=== PATIENT | male | born 1970 | race Caucasian/White ===

== ENCOUNTER 2024-04-07 08:54 | Outpatient (AMB) | payer MEDICAID, SELFPAY ==
--- NOTE | 2024-04-07 09:07 | MHC.OFFVIS ---
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 No hx of injury. Patient reports ongoing pain for about 6 months. He mentions that his pain is on the Patient states his pain is worse when he is using the stairs, walking and stand for too long. Patient finds relief with ibuprofen. 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 The patient was seen by SERGE Ventura, on 03/08/2024 for right knee pain. X-rays of the right knee were ordered. While in the office today, the patient reports experiencing right knee pain ongoing for the past 6 months. He mentions worsening pain with ambulation, prolonged standing, and with ambulating up and down the stairs. He has tried OTC ibuprofen with relief. [facility] Social History (Updated 04/07/24 @ 09:12 by Mallorie Wall) Alcohol intake: never Patient Tobacco Use Status: Current everyday Tobacco user Cigarette Packs Per Day: 0.50 Review of Systems Const All systems reviewed & are unremarkable except as noted in HPI and below Physical Exam Const General: cooperative, healthy appearing and no acute distress Resp Effort & Inspection: normal respiratory effort and able to speak in complete sentences Cardio Rate: regular rate Peripheral pulses: Peripheral pulses 2+ throughout GI Palpation (GI): Soft to palpation Skin Lesions: no lesions Rashes: no rashes Extrem Other: Bilateral knee: Normal to inspection. No ecchymosis, erythema, or joint effusion. No tenderness to palpation along the medial or lateral joint lines. Full knee extension and flexion. Crepitus is felt with ROM. NVI. Assessment & Plan Assessment & Plan (1) Internal derangement of both knees: Code(s): M23.91 - Unspecified internal derangement of right knee; M23.92 - Unspecified internal derangement of left knee Category: Medical Plan Mr. Mccall is a 53-year-old male who presents in the office today, as a new patient, for an evaluation of right knee pain. The patient was seen by Jean VALENTINE on 03/08/2024 for right knee pain. X-rays of the right knee were ordered. While in the office today, the patient reports experiencing right knee pain ongoing for the past 6 months. He mentions worsening pain with ambulation, prolonged standing and with ambulating up and down the stairs. He has tried OTC ibuprofen with relief. I offered him bilateral knee Genumed knee brace, off the shelf which he agreed to try. We discussed the role of cortisone injection; however, he has deferred at this time. Follow-up will be PRN, or sooner if needed. Orders: Orders XR knee LT 1V Today M25.569 - Pain in unspecified knee XR knee RT 3V Today M25.569 - Pain in unspecified knee Patient Instructions: Scribed by Elsi Fisher, medical equipment repairer, for Janina Lemon PA-C on 04/05/24 at 9:36 am EST. Coding Level of Care Code New Pt Level 3 (21634) Diagnoses Internal derangement of both knees M23.91; M23.92
== END 2024-04-07 09:35 | disposition home or self-care (01) ==
LOC: HO.HOS 08:55
PROVIDERS: PCP Physician Assistant; Visit Provider Physician Assistant
DX: M23.91 Unspecified internal derangement of right knee (principal); M23.92 Unspecified internal derangement of left knee
CPT/HCPCS: 99203

== ENCOUNTER 2024-04-07 10:44 | Outpatient (REF) | payer MEDICAID, SELFPAY | END 2024-04-07 10:45 | disposition home or self-care (01) | LOC: HO.HOSX 10:44 | PROVIDERS: Visit Provider Physician Assistant | DX: M25.561 Pain in right knee (principal); M25.562 Pain in left knee; M23.91 Unspecified internal derangement of right knee; M23.92 Unspecified internal derangement of left knee | CPT/HCPCS: 73560; 73562; 99212 ==